=== PATIENT | male | born 1965 | race Caucasian/White ===

== ENCOUNTER 2019-10-18 13:41 | Emergency (ER) | payer MEDICAID ==
--- NOTE | 2019-10-18 13:57 | EDM.PDOC ---
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 Juan Alberto says they "unblocked it" but no stent was placed. He is not on any medications at this time. He thinks his BP runs in the 130's. His heart procedure was at [facility]. He called his primary today and was told to come to the ER. Today he had a few seconds of L chest pain while at rest and this was associated with L arm numbness that lasted at least 30 min, but was gone before arrival. There was no associated nausea, SOB, or diaphoresis. After his cardiac procedure his bilateral shoulder pain has stayed away, but for the past couple of days he's been having intermittent bouts of what brought him in today. Has a follow up appt scheduled for this coming Thursday in [place] at [facility]. A review of his printed heart cath report shows no actual pathology. Onset: Today, Sudden Onset Date: 10/18/19 Duration: Minutes:, Resolved Prior to Arrival Location: Reports: Chest, Upper Extremity, Left Quality: Reports: Other (arm numbness) Severity: Mild Improves with: Reports: Other (time) Worsens with: Reports: Other (unknown) Context: Reports: Other (See HPI) Associated Symptoms: Reports: Chest Pain. 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: Other (see below) (none) - Related Data Allergies Allergy/AdvReac Type Severity Reaction Status Date / Time No Known Allergies Allergy Verified 10/18/19 13:42 Home Meds: Home Meds NK [No Known Home Meds] 10/06/19 [History] Past Medical History HEENT History: Reports: Impaired Vision Cardiovascular History: Reports: High Cholesterol - Infectious Disease History Infectious Disease History: Reports: Chicken Pox - Past Surgical History Head Surgeries/Procedures: Reports: None Cardiovascular Surgical History: Reports: Other (See Below) Dermatological Surgical History: Reports: None Social & Family History - Tobacco Use Smoking Status *Q: Never Smoker - Recreational Drug Use Recreational Drug Use: No ED ROS GENERAL - Review of Systems Review Of Systems: See Below Constitutional: Reports: No Symptoms HEENT: Reports: No Symptoms Respiratory: Reports: No Symptoms Cardiovascular: Reports: Chest Pain GI/Abdominal: Reports: No Symptoms : Reports: No Symptoms Musculoskeletal: Reports: No Symptoms Skin: Reports: No Symptoms Neurological: Reports: Numbness (L arm) Psychiatric: Reports: No Symptoms ED EXAM, GENERAL - Physical Exam Exam: See Below Exam Limited By: No Limitations General Appearance: Alert, WD/WN, No Apparent Distress Eye Exam: Bilateral Eye: Normal Inspection Ears: Normal External Exam, Normal Canal, Hearing Grossly Normal, Normal TMs Ear Exam: Bilateral Ear: Auricle Normal, Canal Normal Nose: Normal Inspection, No Blood Throat/Mouth: Normal Inspection, Normal Lips, Normal Oropharynx, Normal Voice, No Airway Compromise Head: Atraumatic, Normocephalic Neck: Normal Inspection Respiratory/Chest: No Respiratory Distress, Lungs Clear, Normal Breath Sounds, No Accessory Muscle Use, Chest Non-Tender Cardiovascular: Regular Rate, Rhythm, No Edema GI/Abdominal: Normal Bowel Sounds, Soft, Non-Tender, No Distention Back Exam: Normal Inspection. No: CVA Tenderness (R), CVA Tenderness (L) Extremities: Normal Inspection, Normal Range of Motion, Non-Tender, No Pedal Edema Neurological: Alert, Oriented, CN II-XII Intact, Normal Cognition, No Motor/Sensory Deficits Psychiatric: Normal Affect, Normal Mood Skin Exam: Warm, Dry, Intact, Normal Color, No Rash EKG INTERPRETATION EKG Date: 10/18/19 Time: 13:35 Rhythm: NSR Rate (Beats/Min): 74 [place]: Normal P-Wave: Present QRS: Normal ST-T: Normal QT: Normal EKG Interpretation Comments: LVH present. Course - Vital Signs Text/Narrative:: Called [facility] @ 1425h, restated that his cath showed no pathology. Last Recorded V/S: Last Vital Signs Temp 37.1 C 10/18/19 14:10 Pulse 67 10/18/19 14:10 Resp 14 10/18/19 14:10 BP 136/90 10/18/19 14:10 Pulse Ox 96 10/18/19 14:10 - Orders/Labs/Meds Orders: Active Orders 24 hr Category Date Time Status Cardiac Monitoring [RC] .As Directed Care 10/18/19 13:53 Active EKG Documentation Completion [RC] ASDIRECTED Care 10/18/19 13:53 Active EKG 12 Lead [EK] Routine Ther 10/18/19 13:53 Ordered Labs: Laboratory Tests 10/18/19 Range/Units 13:45 Troponin I < 0.017 (0.000-0.056) ng/mL Meds: Medications Discontinued Medications Generic Name Dose Route Start Last Admin Trade Name Gallo PRN Reason Stop Dose Admin Aspirin 324 mg 10/18/19 14:06 10/18/19 14:09 Aspirin PO 10/18/19 14:07 324 mg ONETIME ONE Administration Departure - Departure Time of Disposition: 14:37 Disposition: Home, Self-Care 01 Condition: Good Clinical Impression: Atypical chest pain Instructions: Nonspecific Chest Pain, Adult, [id number] Referrals: PCP,None [Primary Care Provider] - Forms: ED Department Discharge Additional Instructions: Keep your appt for this Thursday. Return as needed. Sepsis Event Note (ED) - Evaluation Sepsis Screening Result: No Definite Risk - Focused Exam Vital Signs: Vital Signs Temp Pulse Resp BP Pulse Ox 10/18/19 14:10 37.1 C 67 14 136/90 96 10/18/19 13:46 36.6 C 78 20 158/93 H 96 - My Orders Last 24 Hours: My Active Orders 10/18/19 13:53 Cardiac Monitoring [RC] .As Directed EKG Documentation Completion [RC] ASDIRECTED EKG 12 Lead [EK] Routine - Assessment/Plan Last 24 Hours: My Active Orders 10/18/19 13:53 Cardiac Monitoring [RC] .As Directed EKG Documentation Completion [RC] ASDIRECTED EKG 12 Lead [EK] Routine
[2019-10-18] MEDS ORDERED: Aspirin 81 MG Tab.Chew PO ONE (14:06)
[2019-10-18 14:12] VITALS: BP 136/90; PULSE 67
== END 2019-10-18 14:49 | disposition home or self-care (01) ==
LOC: JP.ED 13:41
DX: R07.89 Other chest pain (principal)
CPT/HCPCS: 36415; 84484; 93005; 99285; A9270

== ENCOUNTER 2020-06-18 06:22 | Day surgery (SDC) | payer OTHER ==
[2020-06-18] MEDS ORDERED: Acetaminophen 500 MG Tab PO ONE (06:30)
[2020-06-18] MEDS ORDERED: Lidocaine 1% with EPINEPHrine 1:100,000 50 ML MDV ONE (06:31)
[2020-06-18] MEDS ORDERED: Bupivacaine 0.5% 50 ML MDV ONE (06:31)
[2020-06-18] MEDS ORDERED: Midazolam 1 MG/ML 2 ML SDV ONE (06:51)
[2020-06-18] MEDS ORDERED: fentaNYL 100 MCG/2 ML SDV ONE (06:51)
[2020-06-18] MEDS ORDERED: Propofol 200 MG/20 ML SDV ONE (06:51)
[2020-06-18] MEDS ORDERED: ceFAZolin 2 GM in Premix Bag 1 BAG IV ONE (07:00)
[2020-06-18] MEDS ORDERED: Dextrose 5%-Lactated Ringers 1,000 ML IV SCH (07:00)
[2020-06-18 10:06] VITALS: BP 123/85; PULSE 58
--- NOTE | 2020-07-02 11:12 | OR ---
DATE OF PROCEDURE: 06/18/2020 SURGEON: Lev Pedroza MD PREOPERATIVE DIAGNOSIS: Mass of right neck. POSTOPERATIVE DIAGNOSIS: Subfascial mass, right neck. OPERATIVE PROCEDURE: Excision of subfascial mass, right neck (40384). ANESTHESIA: General. INDICATIONS FOR PROCEDURE: This is a 55-year-old male presenting with a gradually enlarging mass in the right neck, just located overlying the submandibular gland area. Preoperative ultrasound had been obtained which showed no significant pathology, which makes me think we are probably dealing with a lipomatous lesion with the fat not being particularly differentiateable from the surrounding normal subcutaneous tissue. I proceeded with excision of the mass, frozen section availability will be maintained. Potential risks of the procedure including bleeding, infection, local recurrence of the problem, injury to the marginal mandibular nerve were gone over, and the patient wishes to proceed. DETAILS OF PROCEDURE: The patient was taken to the operating room, placed in a supine position. After general endotracheal anesthesia was induced, the head was turned somewhat towards the left, and the right neck and facial areas were prepped and draped. The draping was such that we would be able to visualize the angle of the mouth stimulating the marginal mandibular branch of the facial nerve. incision in line with the skin creases was made roughly 2 fingerbreadths below the mandible and carried down through the skin and subcutaneous tissue, platysmal layers, and through the initial fascial layers of the neck what appeared to be a lipoma was then dissected free. This measured around 2 to 3-1/2 cm and appeared to have been removed intact. Frozen section of this was suggestive of a lipomatous lesion although the pathologist was not certain of this at this point. At this point, hemostasis was noted and the incision closed with 2 layers of 3-0 Vicryl stitch deep and then a 4-0 Vicryl subcuticular stitch. Surgical glue was applied, and the patient taken to the recovery room in satisfactory condition. Lev Pedroza MD /[id number]
== END 2020-06-18 09:55 | disposition home or self-care (01) ==
LOC: JP.SDS 06:22
PROVIDERS: ATTEND Surgery
DX: D17.0 Benign lipomatous neoplasm of skin and subcutaneous tissue of head, face and neck (principal)
CPT/HCPCS: 21556; 88304; 88341; 88342; A9270; J0690; J2250; J2704; J3010; J3490; J7121